=== PATIENT | male | born 1980 | race Caucasian/White ===

== ENCOUNTER 2016-11-25 12:18 | Day surgery (SDC) | payer OTHER ==
--- NOTE | ~2016-11-25 | OP ---
Record Of Operation [facility] [address] [place]. [address] NAME: JIM GARDINER : [birth year] STATUS : [facility]#: [id number] AGE: 36 ADM/REG DATE : 11/25/16 MR#: [id number] REPORT SERV DATE: 11/25/16 DICTATED BY: CARLO GILLILAND DATE: 11/25/16 REPORT STATUS : Draft TRANSCRIBED BY: MODL DATE: 11/25/16 DATE OF PROCEDURE: 11/25/2016 PREOPERATIVE DIAGNOSES: 1. Left testicular pain. 2. Left spermatocele. POSTOPERATIVE DIAGNOSES: 1. Left testicular pain. 2. Left spermatocele. PROCEDURE PERFORMED: Left spermatocelectomy. SURGEON: Carlo Gilliland M.D. TRAIN OPERATIONS MANAGER: Mrs. Cullen. ANESTHESIA: General. ESTIMATED BLOOD LOSS: Minimal. SPECIMEN: Left spermatocele. INDICATIONS: The patient is a 36-year-old with lingering left testicular pain. There is a 2.5 to 3 cm left spermatocele. He has point tenderness over the spermatocele. I discussed spermatocelectomy versus a left epididymectomy with him, he has opted for surgical exploration and spermatocelectomy if that is possible. TECHNIQUE: Informed consent was obtained. He was brought to the operative room. Ancef was given. General anesthesia was administered. The genitals and perineum were prepped and draped in the supine position. A midline scrotal incision was made about 3 cm. The dartos was divided. The left testicle was delivered through the incision. There was a normal left testicle and a 3 cm left spermatocele at the superior aspect of the epididymis lateral to the head of the epididymis. Sharp dissection and Bovie were utilized to dissect the spermatocele away from the adjacent testicle cord structures and epididymis. There were two areas, appeared there might have been connection between the spermatocele and the epididymis. These areas were tied and divided with 4-0 chromic suture. Fluid within the spermatocele was clear. Once the spermatocele was dissected free, the wound was irrigated. I pexed the left testicle in place with additional 3-0 chromic suture. The wound was irrigated. The testicle was allowed to retract back into anatomic position. I closed the dartos with running 3-0 Vicryl and closed the skin with a running 3-0 chromic. Approximately 10 mL of heparin of 0.25% Marcaine was given as a spermatic cord block. He tolerated the procedure. He will avoid sexual activity and heavy lifting for two weeks. I will see him back in three weeks in the office. A compressive dressing was applied. Record Of Operation [facility] [address] [place]. [address] NAME: JIM GARDINER : [birth year] STATUS : [facility]#: [id number] AGE: 36 ADM/REG DATE : 11/25/16 MR#: [id number] REPORT SERV DATE: 11/25/16 DICTATED BY: CARLO GILLILAND DATE: 11/25/16 REPORT STATUS : Draft TRANSCRIBED BY: JACQUELIN DATE: 11/25/16 [facility]/JACQUELIN Carlo Gilliland M.D. / [id number] CC: Cookie Alves M.D.
[~2016-11-25 12:18] MED LIST: ACET500CAP PO; CELEBREX1 PO; CLARIT10 PO; ZOL50 PO
[2016-11-25 13:24] LABS: BASOPHILS 0.1 %; BASOPHILS ABSOLUTE 0.01 10/3/uL (0.0-0.16); EOSINOPHILS 2.3 %; EOSINOPHILS ABSOLUTE 0.16 10/3/uL (0.0-0.53); HEMATOCRIT 42.6 % (40.0-51.0); HEMOGLOBIN 14.8 g/dL (13.6-17.8); IMMATURE GRANULOCYTES 0.1 %; IMMATURE GRANULOCYTES ABSOLUTE 0.01 10/3/uL (0.0-0.11); LYMPHOCYTES 43.5 %; LYMPHOCYTES ABSOLUTE 2.97 10/3/uL (0.67-4.30); MEAN CORPUS HGB CONC 34.7 g/dL (32.0-36.0); MEAN CORPUSCULAR HEMOGLOB 30.4 pg (26.0-34.0); MEAN CORPUSCULAR VOLUME 87.5 fL (80-100); MEAN PLATELET VOLUME 8.7 fL (9.2-13.0); MONOCYTES 7.8 %; MONOCYTES ABSOLUTE 0.53 10/3/uL (0.21-1.20); NEUTROPHILS 46.2 %; NEUTROPHILS ABSOLUTE 3.14 10/3/uL (2.02-8.40); PLATELET COUNT 235 10/3/uL (150-400); RBC DISTRIBUTION WIDTH 12.4 % (12.0-16.0); RED CELL COUNT 4.87 10/6/uL (4.7-6.1); WHITE BLOOD CELLS 6.8 10/3/uL (4.5-10.5)
[2016-11-25 13:26] LABS: MANUAL DIFF NO %
[2016-11-25 13:34] LABS: BUN (BLOOD UREA NITROGEN) 18 MG/DL (6-23); CHLORIDE, SERUM 106 MMOL/L (96-112); CO2 (CARBON DIOXIDE) 29 MMOL/L (24-34); CREATININE 1.06 MG/DL (0.70-1.30); GFR AFRICAN AMERICAN 105 ML/MIN (>=60); GFR NON AFRICAN AMERICAN 90 ML/MIN (>=60); GLUCOSE, SERUM 84 MG/DL (60-99); POTASSIUM, SERUM 3.9 MMOL/L (3.5-5.3); SODIUM, SERUM 144 MMOL/L (135-148)
== END 2016-11-25 19:53 | disposition home or self-care (01) ==
LOC: SDC 12:18
PROVIDERS: Urology
PROC: 0VBK0ZZ Excision of Left Epididymis, Open Approach (ICD-10-PCS; principal; 2016-11-25 14:00)
DX: N43.40 Spermatocele of epididymis, unspecified (principal); N50.812 Left testicular pain; F41.9 Anxiety disorder, unspecified; G89.29 Other chronic pain; F32.9 Major depressive disorder, single episode, unspecified; Z87.81 Personal history of (healed) traumatic fracture; Z79.1 Long term (current) use of non-steroidal anti-inflammatories (NSAID); Z79.899 Other long term (current) drug therapy
CPT/HCPCS: 80048; 85025; 88304; A9270-GY; J0690; J2250; J2270; J2405; J3010